=== PATIENT | female | born 1950 | race Caucasian/White ===

== ENCOUNTER → 2016-09-22 | Outpatient (CLI) | payer OTHER ==
[~2016-09-22] MED LIST: LEVOTHYROXINE0.05 MG; RESTASIS1 EACH; VYTORIN 10-101 EACH
--- NOTE | ~2016-09-22 | S ---
[facility] [address] [place] [address] SURGICAL PATH RPT PROCEDURE Name: RYLAN MENDOSA Room #: [facility]..#: [id number] Admission: 09/22/16 Date of : 46 Discharge: Report #: [id number] Path Case #: [id number] PATHOLOGY REPORT COLLECTION DATE: 09/22/2016 RECEIVED DATE: 09/22/2016 SUBMITTING PHYS: Dr. Jesús Serrano Jr. OTHER PHYS: ADDENDUM REPORT (Order Date: 09/29/2016 13:22) ADDENDUM COMMENT: This addendum is issued subsequently reviewing a well-controlled p16 immunohistochemical stain. P16 immunohistochemical stain performed on block A1 - Strong diffuse reactivity present. The originally rendered diagnosis remains unchanged. (IUV:red; 09/29/2016) Professional services performed by [facility] at [facility] [address] [place] [address] Technical services performed by [facility] at [address] [place] [address], [address] [place] [address]. ELECTRONICALLY SIGNED BY: Negra Gil M.D. 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 COMMENT: Examination shows cores of fibrovascular connective tissue with islands of basaloid malignant epithelial cells. The differential diagnosis includes basaloid squamous cell carcinoma, or a basal cell carcinoma. Focal keratin frank formation is present. Overlying surface epithelium (skin) is not present. There is no lymphoid parenchyma present. 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 It is likely that this represents an effaced lymph node; however, lack of intact lymph node parenchyma precludes a diagnosis of metastatic carcinoma. Clinical correlation is required. [facility] [address] [place] [address] SURGICAL PATH RPT PROCEDURE Name: RYLAN MENDOSA Room #: [facility].#: [id number] Admission: 09/22/16 Date of : 46 Discharge: Report #: [id number] Path Case #: [id number] Co-review: Dr. Brissa Chavez (IUV:mgr; 09/25/2016) PATHOLOGIST: Negra Gil M.D. REPORT ELECTRONICALLY SIGNED BY: Negra Gil M.D. DATE/TIME: 09/25/2016 16:38 * * * * * * * * * * * * GROSS PATHOLOGY: Received in formalin labeled "Rylan eMndosa, right neck mass," are multiple distinct needle cores of heart soft tissue ranging from 0.1 to 0.7 cm in length, which are submitted entirely in cassette A1. (SNA; 09/22/2016) CLINICAL HISTORY: Right neck mass INITIAL CPT CODE(S): A; 61886, 58064 Professional services performed by [facility] at [facility] [address], [place] [address] Technical services performed by [facility] at [address] [place] [address], [address], [place] [address]. [facility] [address] [place] [address] PHONE: [phone] DIRECTOR: Robert Miles M.D. * * * END OF REPORT * * *
== END | disposition home or self-care (01) ==
LOC: CAT 06:51
PROVIDERS: Otolaryngology Plastic Surgery within the Head & Neck
DX: C76.0 Malignant neoplasm of head, face and neck (principal)